=== PATIENT | male | born 1965 | race Asian ===

== ENCOUNTER 2023-10-11 07:08 | Day surgery (SDC) | payer BC ==
[2023-10-02 14:51] VITALS: BMI 25.0
[2023-10-11] MEDS ORDERED: Ferric Subsulfate 8 ML TOPICAL SOLN ONE (09:29)
[2023-10-11] MEDS ORDERED: EPINEPHrine 1 MG/ML VIAL ONE (09:29)
[2023-10-11] MEDS ORDERED: Bacitracin Zinc Ointment 30 gm TUBE ONE (09:30)
[2023-10-11] MEDS ORDERED: Lidocaine 1% (PF) 30 ML VIAL ONE (09:30)
[2023-10-11] MEDS ORDERED: Oxymetazoline HCl 0.05% (30 ML BOT) ONE (09:32)
[2023-10-11] MEDS ORDERED: Rocuronium Bromide 10 MG/ML (10ML VIAL) ONE (09:35)
[2023-10-11] MEDS ORDERED: Lidocaine 1% PF 5 ML VIAL ONE (09:35)
[2023-10-11] MEDS ORDERED: Dexamethasone 4 mg/ml Vial ONE (09:35)
[2023-10-11] MEDS ORDERED: Ondansetron PF 4 MG/2 ML Vial ONE (09:35)
[2023-10-11] MEDS ORDERED: PROPOFOL 20 ML ONE (09:36)
[2023-10-11] MEDS ORDERED: Fentanyl 250 MCG/5 ML VIAL ONE (09:36)
[2023-10-11] MEDS ORDERED: SUGAMMADEX SODIUM 200 MG/2 ML VIAL ONE (09:36)
[2023-10-11] MEDS ORDERED: Ketamine In 0.9 % NaCl 50 MG/5 ML SYRINGE ONE (09:40)
[2023-10-11] MEDS ORDERED: fentaNYL 50 mcg/mL 1 mL Vial ONE ×2 (11:30→12:07)
[2023-10-11] MEDS ORDERED: Hydrocodone-Acetamin 15 ML UDCUP ONE (13:52)
== END 2023-10-11 14:36 | disposition home or self-care (01) ==
LOC: EDSEX → SDC 07:08
PROVIDERS: ATTEND Otolaryngology Plastic Surgery within the Head & Neck
PROC: 09BM0ZZ Excision of Nasal Septum, Open Approach (ICD-10-PCS; principal; 2023-10-11)
PROC: 0CBQ0ZZ Excision of Adenoids, Open Approach (ICD-10-PCS; principal; 2023-10-11)
PROC: 0CBPXZZ Excision of Tonsils, External Approach (ICD-10-PCS; principal; 2023-10-11)
PROC: 09BL0ZZ Excision of Nasal Turbinate, Open Approach (ICD-10-PCS; principal; 2023-10-11)
PROC: 0CBN0ZZ Excision of Uvula, Open Approach (ICD-10-PCS; principal; 2023-10-11)
DX: J35.3 Hypertrophy of tonsils with hypertrophy of adenoids (principal); J34.2 Deviated nasal septum; J34.3 Hypertrophy of nasal turbinates; K13.79 Other lesions of oral mucosa; J32.0 Chronic maxillary sinusitis; G47.33 Obstructive sleep apnea (adult) (pediatric)
CPT/HCPCS: 88302; 88304; J0171; J1100; J2001; J2405; J2704; J3010; J3490